=== PATIENT | female | born 2000 | race Caucasian/White ===

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

== ENCOUNTER 2018-04-19 12:52 | Emergency (ER) | payer OTHER ==
[~2018-04-19] VITALS: Ht 165.1 cm; Wt 90.2 kg
[~2018-04-19 12:52] MED LIST changes: +XYLOCAINE VISC100 ML PO
[2018-04-19] MEDS ORDERED: VALACYCLOVIR1000 MG PO (13:58)
[2018-04-19] MEDS ORDERED: DELTASONE20 M1 PO (13:58)
[2018-04-19] MEDS ORDERED: AKWA TEARS OIN3.5 GM BOTH EYES (13:58)
[2018-04-19 14:53] VITALS: BP 154/87
== END 2018-04-19 14:57 | disposition home or self-care (01) ==
LOC: EME 12:52
DX: G51.0 Bell's palsy (principal)
CPT/HCPCS: 99281; 99285; J7512